=== PATIENT | male | born 1985 | race Caucasian/White ===

== ENCOUNTER → 2019-11-04 | Outpatient (CLI) | payer MEDICARE, MEDICAID, SELFPAY | PROVIDERS: Family Provider Internal Medicine; Visit Provider Nurse Practitioner | DX: F20.89 Other schizophrenia (principal); F17.210 Nicotine dependence, cigarettes, uncomplicated; G47.33 Obstructive sleep apnea (adult) (pediatric) ==

== ENCOUNTER → 2020-01-24 08:08 | Outpatient (BNVA) | payer MEDICARE, MEDICAID, SELFPAY | PROVIDERS: Family Provider Internal Medicine; PCP Internal Medicine; Visit Provider Nurse Practitioner Psychiatric/Mental Health | DX: Z79.899 Other long term (current) drug therapy (principal); F20.89 Other schizophrenia; F17.210 Nicotine dependence, cigarettes, uncomplicated | CPT/HCPCS: 80053; 80061; 83036; 85025; 99213 ==

== ENCOUNTER 2020-03-23 07:30 | Outpatient (CLI) | payer MEDICARE, MEDICAID, SELFPAY ==
--- NOTE | 2020-03-23 07:35 | US_ITS ---
WS: [id number] ABDOMINAL ULTRASOUND LIMITED REASON FOR VISIT: RIGHT UPPER QUANTRANT PAIN TECHNIQUE: Grayscale and Doppler ultrasound examination of the abdomen. FINDINGS: Pancreas: Within normal limits. Abdominal aorta and IVC: Within normal limits. Liver: Liver measures 27.2 cm in length. Diffuse fatty infiltration is noted. Normal hepatopedal circ ulation. Gallbladder: Gallbladder wall thickness measures 0.3 mm. Biliary sludge is present. No definite stone s. Right kidney: Right kidney measures 12.2 cm x 6.9 cm x 4.9 cm. No hydronephrosis no stones. US/US abdomen limited [id number] IMPRESSION: Hepatomegaly Fatty infiltration of the liver Biliary sludge.
== END 2020-03-23 07:31 | disposition home or self-care (01) ==
LOC: RAD 07:33
PROVIDERS: PCP Internal Medicine; Visit Provider Internal Medicine
DX: R10.11 Right upper quadrant pain (principal); K76.0 Fatty (change of) liver, not elsewhere classified; R16.0 Hepatomegaly, not elsewhere classified
CPT/HCPCS: 76705

== ENCOUNTER → 2020-04-17 07:35 | Outpatient (BNVA) | payer MEDICARE, MEDICAID, SELFPAY | PROVIDERS: PCP Internal Medicine; Visit Provider Nurse Practitioner Psychiatric/Mental Health | DX: F20.89 Other schizophrenia (principal); F17.210 Nicotine dependence, cigarettes, uncomplicated | CPT/HCPCS: 99213 ==

== ENCOUNTER → 2020-07-10 07:27 | Outpatient (BNVA) | payer MEDICARE, MEDICAID, SELFPAY | PROVIDERS: PCP Internal Medicine; Visit Provider Nurse Practitioner Psychiatric/Mental Health | DX: F20.89 Other schizophrenia (principal); F17.210 Nicotine dependence, cigarettes, uncomplicated | CPT/HCPCS: 96372; 99213 ==

== ENCOUNTER 2020-08-28 14:09 | Outpatient (CLI) | payer MEDICARE, MEDICAID, SELFPAY ==
--- NOTE | 2020-08-28 14:28 | MR_ITS ---
WS: [id number] MRI HEAD WITHOUT CONTRAST TECHNIQUE: Sagittal T1, T2 axial, T2 axial FLAIR, axial and coronal T1 images, axial susceptibility w eighted imaging, axial diffusion weighted images, and coronal T2 images were obtained. CLINICAL INFORMATION: MIGRAINE, VASCULAR HEADACHE COMPARISON: None. FINDINGS: No evidence of restricted diffusion to suggest acute ischemia. Ventricular system and basal cisterns are patent. No suspicious intracranial signal abnormalities. Normal posterior fossa. Normal vascular flow voids at the skull base. No extra-axial fluid collections. No evidence of mass or mass effect. S mall retention cyst in the posterior ethmoid air cells and right maxillary sinus. Small amount of flu id right frontal sinus. Mastoid air cells are well aerated. No hemosiderin on susceptibly weighted images. Tornwaldt or retention cyst in the posterior nasophary nx. This measures approximately 12 x 10 mm. Normal optic chiasm and pituitary infundibulum. Temporal lobes and hippocampal formations are normal in appearance. Normal cavernous sinuses and Meckel's cave . MR/MR head wo con* [id number] IMPRESSION: 1. No evidence of restricted diffusion to suggest acute ischemia. 2. No suspicious intracranial signal abnormalities. No hydrocephalus. 3. Retention cyst right maxillary sinus measuring 1.8 x 1.7 CM. Small retentio n cyst right posterior ethmoid air cells measuring 9 mm. Small amount of fluid in the right frontal sinus. 4. Prominent Tornwaldt cyst or polypoid retention cyst in the posterior nasoph arynx measuring 12 x 10 mm. 5. No hemosiderin on susceptibly weighted images. 6. No other significant findings.
== END 2020-08-28 14:10 | disposition home or self-care (01) ==
PROVIDERS: PCP Internal Medicine; Visit Provider Internal Medicine
DX: G43.909 Migraine, unspecified, not intractable, without status migrainosus (principal); G44.1 Vascular headache, not elsewhere classified; M27.40 Unspecified cyst of jaw
CPT/HCPCS: 70551

== ENCOUNTER 2020-09-16 18:41 | Emergency (ER) | payer MEDICARE, MEDICAID, SELFPAY ==
[2020-09-16 18:56] VITALS: BP 148/89; PULSE 89; RESP 14; TEMP 36.7; O2SAT 97; BMI 50.2
[2020-09-16 19:21] VITALS: BP 148/91; PULSE 88; RESP 20; O2SAT 98
--- NOTE | 2020-09-16 19:25 | XRR_ITS ---
PROCEDURE INFORMATION: Exam: XR Chest, 1 View Exam date and time: 09/16/2020 7:52 PM Age: 35 years old Clinical indication: Type not specified; Patient HX: Substernal chest pain resolved; Additional info: Cp TECHNIQUE: Imaging protocol: XR of the chest Views: 1 view. COMPARISON: No relevant prior studies available. FINDINGS: Lungs: Unremarkable. No consolidation. Pleural space: Unremarkable. No pleural effusion. No pneumothorax. Heart/Mediastinum: Unremarkable. No cardiomegaly. Bones/joints: Unremarkable. XR/XR chest 1V portable [id number] IMPRESSION: No acute findings.
--- NOTE | 2020-09-16 19:25 | ECG_ITS ---
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
[2020-09-16 19:30] LABS: Basophils % 0.4 %; Eosinophils # 0.3 10^3/uL (0.0-0.8); Eosinophils % 2.6 %; Hematocrit 42.6 % (42.0-52.0); Hemoglobin 14.2 g/dL (11.7-16.6); Lymphocytes # 1.9 10^3/uL (0.8-4.8); Mean Corpuscular HGB Conc 33.3 g/dL (30.0-36.0); Mean Corpuscular Hemoglobin 29.6 pg (28.0-34.0); Mean Corpuscular Volume 88.9 fL (80-94); Mean Platelet Volume 9.3 fL (7.4-10.4); Monocytes # 0.4 10^3/uL (0.2-0.9); Monocytes % 4.3 %; Neutrophils # 7.27 10^3/uL (1.8-7.7); Neutrophils % 73.3 %; Nucleated Red Blood Cells % 0 %; Platelet Count 275 10^3/cmm (130-400); Red Blood Count 4.79 10^6/uL (4.1-5.3); Red Cell Distribution Width 11.8 % (12.1-15.1); White Blood Count 9.9 10^3/uL (4.0-10.0)
[2020-09-16 19:51] LABS: Troponin(5th) Baseline 6 ng/L (0-15)
[2020-09-16 20:01] LABS: Alanine Aminotransferase 19 U/L (0-41); Albumin Level 4.2 g/dL (3.5-5.2); Alkaline Phosphatase 99 IU/L (40-130); Anion Gap 14.2 (5-19); Aspartate Amino Transferase 10 U/L (0-40); Blood Urea Nitrogen 13 mg/dL (6-20); Calcium 9.1 mg/dL (8.5-10.5); Carbon Dioxide 27 mmol/L (22-29); Chloride 103 mmol/L (98-107); Creatine Phosphokinase 60 U/L (39-308); Globulin 1.9 g/dL (1.3-4.6); Glucose 108 mg/dL (65-115); NT Pro B Type Natriuretic Pept 129 pg/mL (0-125); Osmolality Calculated 291 mOsm/kg (285-295); Potassium 4.2 mmol/L (3.5-5.1); Sodium 140 mmol/L (136-145); Total Bilirubin 0.2 mg/dL (0.15-1.2); Total Protein 6.1 g/dL (6.6-8.7)
--- NOTE | 2020-09-16 20:07 | W.ED.CHESTPA ---
HPI - Chest Pain General: Chief Complaint: Chest Pain Stated Complaint: CP Time Seen by Provider: 09/16/20 19:08 History of Present Illness: HPI narrative: 35-year-old male with a history of hypertension. He presents with a second of chest pain that was quite intense while on his computer at home this evening. It is gone now. He was short of breath with the pain, but is not short of breath now. No diaphoresis, nausea, or vomiting. He has been monitoring his blood pressure closely for the past couple of weeks as it has been elevated at times. He recently had an MRI for a near syncopal episode as an outpatient. MD complaint: chest pain Pertinent past history: other (HTN) Onset (ago): hour(s) Timing of current episode: episodic and now resolved Prior episodes: Yes Onset: during rest Pain location: substernal Pain radiation: none Severity: severe Relieving factors: nothing Exacerbating factors: nothing Associated symptoms: Reports dyspnea; Deny fever(s), leg edema, nausea, syncope or vomiting Review of Systems Const: Denies: fever(s) Eyes: Denies: change in vision ENMT: Denies: odynophagia or sinus pain Card: Denies: syncope Resp: Reports: dyspnea GI: Denies: nausea or vomiting : Denies: difficulty urinating or hematuria Musc: Reports: neck pain; Denies: back pain or joint warmth Skin/Breast: Denies: rash or erythema Neuro: Denies: headache(s), dizziness or vertigo Psych: Denies: anxiety PFSH ED PFSH: Medical History (Updated 09/16/20 @ 20:20 by Bryan Perdue DO) Diabetes HTN (hypertension) Hyperlipidemia Nicotine dependence, cigarettes, uncomplicated Obesities, morbid Obstructive sleep apnea Other schizophrenia Surgical History History of adenoidectomy History of colonoscopy History of esophagogastroduodenoscopy (EGD) Family History Denies family history of Anesthesia complication Bleeding disorder Social History Smoking and tobacco status: current every day smoker cigarettes Packs smoked per day: 1.5 Years cigarettes smoked: 16 Quit status (tobacco): considering quitting Second hand smoke exposure: No Physical Exam Const: GENERAL APPEARANCE: well developed ORIENTATION/CONSCIOUSNESS: Yes oriented to person, Yes oriented to place and Yes oriented to time HENMT: COMMON NORMALS: normocephalic, external ears normal and Normal external nose present HEAD & SCALP: normocephalic FACE & SINUS: normal facial exam NOSE: Normal external nose present and No nasal discharge present EXTERNAL EAR: Yes external ears normal THROAT: posterior oropharynx normal; no peritonsillar mass Eye: COMMON NORMALS: Equal, round and reactive pupils present, EOMs intact bilaterally and conjunctivae normal EYELID: eyelids normal CONJUNCTIVA: Yes conjunctivae normal PUPIL: Yes Equal, round and reactive pupils present Neck/C-Spine: GENERAL: No tracheal deviation Chest: COMMONS NORMALS: normal inspection of the chest CHEST: No tenderness Resp: COMMON NORMALS: clear to auscultation bilaterally EFFORT & INSPECTION: No tachypneic, No respiratory distress, No retractions, No uses accessory muscles and No tracheal deviation AUSCULTATION: clear to auscultation bilaterally, no rhonchi, no wheezes and lung sounds not diminished Cardio: COMMON NORMALS: regular rate and regular rhythm RATE: regular rate RHYTHM: regular rhythm HEART SOUNDS: no murmurs PERIPHERAL PULSES: radial pulses present GI: INSPECTION: No abdominal distension AUSCULTATION: No Hyperactive bowel sounds present and No Hypoactive bowel sounds present PALPATION: No Guarding due to palpation present (GI) and No Rigid due to palpation PERCUSSION: no dullness to percussion and no tympanic to percussion Neuro: SENSORIUM/ORIENTATION: Yes oriented to person, Yes oriented to place and Yes oriented to time Psych: COMMON NORMALS: mental status grossly normal Skin: COMMON NORMALS: no rashes or lesions noted GENERAL SKIN EXAM: no rashes or lesions noted Course Vital Signs: Vital signs: Vital Signs Temperature 98.0 F 09/16/20 18:56 Pulse Rate 92 09/16/20 20:26 Respiratory Rate 18 09/16/20 20:26 Blood Pressure 160/91 09/16/20 20:26 Pulse Oximetry 98 09/16/20 20:26 MDM - Chest Pain MDM Narrative: Medical decision making narrative: 35-year-old male with an instant of chest pain while at rest at home. His blood pressure was elevated. It has come back down now he is in the 150s over 80s. His pain is resolved. No fever. No cough. His chest x-ray is negative. His EKG is normal with a normal sinus rhythm and normal axis. His white blood cell count is 9.9. Hemoglobin 14. His troponin is 6. He will be allowed home for outpatient follow-up. Lab Data: Labs: Lab Results 09/16/20 09/16/20 09/16/20 Range/Units 19:15 19:15 19:15 WBC 9.9 (4.0-10.0) 10^3/ uL RBC 4.79 (4.1-5.3) 10^6/u L Hgb 14.2 (11.7-16.6) g/dL Hct 42.6 (42.0-52.0) % MCV 88.9 (80-94) fL MCH 29.6 (28.0-34.0) pg MCHC 33.3 (30.0-36.0) g/dL RDW 11.8 L (12.1-15.1) % Plt Count 275 (130-400) 10^3/c mm MPV 9.3 (7.4-10.4) fL Neut % (Auto) 73.3 % Lymph % (Auto) 19.0 % [place] % (Auto) 4.3 % Eos % (Auto) 2.6 % Baso % (Auto) 0.4 % Neut # (Auto) 7.27 (1.8-7.7) 10^3/u L Lymph # (Auto) 1.9 (0.8-4.8) 10^3/u L [place] # (Auto) 0.4 (0.2-0.9) 10^3/u L Eos # (Auto) 0.3 (0.0-0.8) 10^3/u L Baso # (Auto) 0.0 (0.0-0.1) 10^3/u L Nucleated RBC % (a uto) 0 % Nucleated RBCs # 0.0 /100WBC Sodium 140 (136-145) mmol/L Potassium 4.2 (3.5-5.1) mmol/L Chloride 103 (98-107) mmol/L Carbon Dioxide 27 (22-29) mmol/L Anion Gap 14.2 (5-19) BUN 13 (6-20) mg/dL Creatinine 0.8 (0.7-1.2) mg/dL GFR Calculation 110.0 (90-130) mL/min Glucose 108 (65-115) mg/dL Calculated Osmolal ity 291 (285-295) mOsm/k g Calcium 9.1 (8.5-10.5) mg/dL Total Bilirubin 0.2 (0.15-1.2) mg/dL AST 10 (0-40) U/L ALT 19 (0-41) U/L Alkaline Phosphata se 99 (40-130) IU/L Creatine Kinase 60 (39-308) U/L Troponin T Baselin e 6 (0-15) ng/L NT-Pro-B Natriuret Pep 129 H (0-125) pg/mL Total Protein 6.1 L (6.6-8.7) g/dL Albumin 4.2 (3.5-5.2) g/dL Globulin 1.9 (1.3-4.6) g/dL Discharge Plan Discharge Patient Disposition: Home Clinical Impression: Chest pain Qualifiers: Chest pain type: unspecified Qualified Code(s): R07.9 - Chest pain, unspecified Condition: Stable Prescriptions: No Action lisinopril-hydrochlorothiazide 20-12.5 mg tablet 1 tab PO DAILY RF: 0 cholecalciferol (vitamin D3) 1,250 mcg (50,000 unit) capsule 1,250 mcg PO .weekly RF: 0 Invega Trinza 546 mg/1.75 mL syringe 546 mg IM .[id number] Qty: 1.75 RF: 6 Discharge Orders: Discharge Order (Routine); Ordered 09/16/20 Ordered By: Bryan Perdue Referrals: Kacey Adam MD [Primary Care Provider] - 4-7 days Discharge Diet: Usual diet Discharge Activity: Increase activity as tolerated Patient Instructions: Chest Pain (ED) Activity Restrictions/Additional Instructions: Continue to monitor your blood pressure twice daily as directed by your physician. Return for any repeated episodes of chest pain, shortness of breath, fever, cough, repeated episodes of syncope or passing out, other concerning symptoms. Discharge Date/Time: 09/16/20 20:27 Coding Level of Care Code ED Furniture Stainer for Chg Fwd Exam Comprehensive
[2020-09-16 20:13] VITALS: BP 160/91; PULSE 91; RESP 18; O2SAT 97
[2020-09-16 20:26] VITALS: BP 160/91; PULSE 92; RESP 18; O2SAT 98
== END 2020-09-16 20:27 | disposition home or self-care (01) ==
PROVIDERS: Emergency Provider Emergency Medicine; PCP Internal Medicine
DX: R07.9 Chest pain, unspecified (principal); E11.9 Type 2 diabetes mellitus without complications; I10 Essential (primary) hypertension; E78.5 Hyperlipidemia, unspecified; F17.210 Nicotine dependence, cigarettes, uncomplicated
CPT/HCPCS: 12345; 71045; 80053; 82550; 83880; 84484; 85025; 93005; 99282; 99283

== ENCOUNTER → 2020-10-02 08:03 | Outpatient (BNVA) | payer MEDICARE, MEDICAID, SELFPAY | PROVIDERS: PCP Internal Medicine; Visit Provider Nurse Practitioner Psychiatric/Mental Health | DX: F20.89 Other schizophrenia (principal); F17.210 Nicotine dependence, cigarettes, uncomplicated | CPT/HCPCS: 96372; 99213 ==

== ENCOUNTER → 2021-01-04 10:59 | Outpatient (BNVA) | payer MEDICARE, MEDICAID, SELFPAY | PROVIDERS: PCP Internal Medicine; Visit Provider Nurse Practitioner Psychiatric/Mental Health | DX: F20.89 Other schizophrenia (principal); F17.210 Nicotine dependence, cigarettes, uncomplicated | CPT/HCPCS: 96372; 99214 ==

== ENCOUNTER → 2021-04-01 08:55 | Outpatient (BNVA) | payer MEDICARE, MEDICAID, SELFPAY | PROVIDERS: PCP Internal Medicine; Visit Provider Nurse Practitioner Psychiatric/Mental Health | DX: F20.89 Other schizophrenia (principal); Z79.899 Other long term (current) drug therapy; F17.210 Nicotine dependence, cigarettes, uncomplicated | CPT/HCPCS: 96372; 99214 ==

== ENCOUNTER → 2021-07-01 08:33 | Outpatient (BNVA) | payer MEDICARE, MEDICAID, SELFPAY | PROVIDERS: PCP Internal Medicine; Visit Provider Nurse Practitioner Psychiatric/Mental Health | DX: F20.89 Other schizophrenia (principal); F17.210 Nicotine dependence, cigarettes, uncomplicated | CPT/HCPCS: 96372; 99214 ==

== ENCOUNTER → 2021-09-26 08:38 | Outpatient (BNVA) | payer MEDICARE, MEDICAID, SELFPAY | PROVIDERS: PCP Internal Medicine; Visit Provider Nurse Practitioner Psychiatric/Mental Health | DX: F20.89 Other schizophrenia (principal); F17.210 Nicotine dependence, cigarettes, uncomplicated | CPT/HCPCS: 96372; 99214 ==

== ENCOUNTER 2021-09-26 09:39 | Outpatient (CLI) | payer MEDICARE, MEDICAID, SELFPAY ==
[2021-09-26 10:15] LABS: Basophils # 0.1 10^3/uL (0.0-0.1); Basophils % 0.5 %; Eosinophils # 0.3 10^3/uL (0.0-0.8); Hematocrit 45.1 % (42.0-52.0); Hemoglobin 15.6 g/dL (11.7-16.6); Lymphocytes # 2.9 10^3/uL (0.8-4.8); Lymphocytes % 26.5 %; Mean Corpuscular HGB Conc 34.6 g/dL (30.0-36.0); Mean Corpuscular Hemoglobin 29.9 pg (28.0-34.0); Mean Corpuscular Volume 86.6 fl (80-94); Mean Platelet Volume 9.5 fL (7.4-10.4); Monocytes # 0.6 10^3/uL (0.2-0.9); Monocytes % 5.8 %; Neutrophils # 6.92 10^3/uL (1.8-7.7); Neutrophils % 63.5 %; Nucleated Red Blood Cells % 0 %; Platelet Count 298 10^3/cmm (130-400); Red Blood Count 5.21 10^6/uL (4.1-5.3); Red Cell Distribution Width 12.4 % (12.1-15.1); White Blood Count 10.9 10^3/uL (4.0-10.0)
[2021-09-26 10:21] LABS: Estmated Average Glucose 177; Hemoglobin A1C 7.8 % (4.0-6.0)
[2021-09-26 10:33] LABS: Alanine Aminotransferase 33 U/L (0-41); Albumin Level 4.1 g/dL (3.5-5.2); Alkaline Phosphatase 92 IU/L (40-130); Anion Gap 15.9 (5-19); Aspartate Amino Transferase 22 U/L (0-40); Blood Urea Nitrogen 11 mg/dL (6-20); Calcium 9.6 mg/dL (8.5-10.5); Carbon Dioxide 25 mmol/L (22-29); Chloride 99 mmol/L (98-107); Globulin 2.7 g/dL (1.3-4.6); Glomerular Filtration Rate 109.4 mL/min (90-130); Glucose 157 mg/dL (65-115); Osmolality Calculated 285 mOsm/kg (285-295); Potassium 3.9 mmol/L (3.5-5.1); Sodium 136 mmol/L (136-145); Total Bilirubin 0.4 mg/dL (0.15-1.2); Total Protein 6.8 g/dL (6.6-8.7)
[2021-09-26 17:42] LABS: Cholesterol 232 mg/dL (0-200); HDL Cholesterol 40 mg/dL (60-100); LDL Cholesterol Calculated 130 mg/dL (50-129); LDL HDL Ratio 3.25 RATIO (0.00-3.22); Triglycerides 310 mg/dL (0-150)
== END 2021-09-26 09:40 | disposition home or self-care (01) ==
PROVIDERS: PCP Internal Medicine; Visit Provider Nurse Practitioner Psychiatric/Mental Health
DX: Z79.899 Other long term (current) drug therapy (principal)
CPT/HCPCS: 36415; 80053; 80061; 83036; 85025

== ENCOUNTER → 2021-12-24 08:47 | Outpatient (BNVA) | payer MEDICARE, MEDICAID, SELFPAY | PROVIDERS: PCP Internal Medicine; Visit Provider Nurse Practitioner Psychiatric/Mental Health | DX: F17.210 Nicotine dependence, cigarettes, uncomplicated (principal); F20.89 Other schizophrenia | CPT/HCPCS: 96372; 99214 ==

== ENCOUNTER → 2022-03-20 08:29 | Outpatient (BNVA) | payer MEDICARE, MEDICAID, SELFPAY | PROVIDERS: PCP Internal Medicine; Visit Provider Nurse Practitioner Psychiatric/Mental Health | DX: F17.210 Nicotine dependence, cigarettes, uncomplicated (principal); F20.89 Other schizophrenia | CPT/HCPCS: 96372; 99214 ==

== ENCOUNTER 2022-09-30 15:50 | Emergency (ER) | payer MEDICARE, MEDICAID, SELFPAY ==
[2022-09-30 15:57] VITALS: BP 154/96; PULSE 106; RESP 16; TEMP 36.4; O2SAT 96
--- NOTE | 2022-09-30 16:03 | ECG_ITS ---
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
[2022-09-30 16:33] VITALS: BP 156/101
--- NOTE | 2022-09-30 16:50 | PC.NURSE ---
pt reports pain to his back and then needle pricks in his left hand, and headache which have all resolved. Reports current nausea and slight dyspnea. denies chest pain or vomiting. pt reports he sees a wellness educator with [facility], states he sees her for back pain. Pt sitting up in bed, respirations even and unlabored, lung sounds clear. visitors at bedside. call light within reach.
[2022-09-30 17:00] VITALS: BP 154/102; PULSE 121; O2SAT 94
--- NOTE | 2022-09-30 17:12 | W.ED.GENADLT ---
HPI - General Adult General: Chief complaint: General Medical Stated complaint: rapid hr, n/v/headache Time Seen by Provider: 09/30/22 16:40 Source: patient Mode of arrival: ambulatory History of Present Illness: 37-year-old male presents to the emergency room with complaints of pain in his back. Patient had back pain intermittently for the last approximately week. Couple x3 days ago he had a few seconds of intermittent chest pain. Said a rapid heart rate he has a history of diabetes mellitus he does smoke is history hypertension hyperlipidemia as well he has no known history of coronary artery disease. He has not previously had any cardiac screening or evaluation. He had seen a computer network engineer he had associated back pain with possible cardiac pain but when he was evaluated it was not thought to be associated with any cardiac issues. Has not noticed anything that exacerbates or relieves the pain he has not had any associated diaphoresis or dyspnea. Onset (ago): day(s) (-) Location: back Radiation: non-radiation Severity: mild Quality: sharp Pain Consistency: intermittent Relieving factors: none Exacerbating factors: none Associated symptoms: Reports chest pain; Deny confusion, cough, diaphoresis, decreased appetite, dyspnea, fevers/chills, headache(s), malaise, nausea, rash, palpitations, seizures, short of breath, syncope, vomiting or weakness Treatments prior to arrival: none Review of Systems Const: Denies: fever(s), chills, fatigue, malaise or diaphoresis ENMT: Denies: throat pain, ear or mastoid pain, nasal discharge or nasal congestion Card: Reports: chest pain; Denies: palpitations or syncope Resp: Denies: dyspnea, productive cough, non-productive cough or wheezing GI: Denies: nausea or vomiting : Denies: flank pain, dysuria, urinary frequency or urinary urgency Musc: Reports: back pain Skin/Breast: Denies: rash Neuro: Denies: headache(s) or confusion PFSH ED PFSH: Medical History Diabetes HTN (hypertension) Hyperlipidemia Nicotine dependence, cigarettes, uncomplicated Obesities, morbid Obstructive sleep apnea Other schizophrenia Psychiatric care Surgical History History of adenoidectomy History of colonoscopy History of esophagogastroduodenoscopy (EGD) Family History Denies family history of Anesthesia complication Bleeding disorder Social History Smoking and tobacco status: current every day smoker cigarettes Years cigarettes smoked: 16 Quit status (tobacco): considering quitting Second hand smoke exposure: No Physical Exam Const: COMMON NORMALS: no acute distress GENERAL APPEARANCE: cooperative and comfortable ORIENTATION/CONSCIOUSNESS: Yes awake, Yes oriented to person, Yes oriented to place and Yes oriented to time HENMT: COMMON NORMALS: normocephalic, atraumatic and hearing grossly normal bilaterally HEAD & SCALP: normocephalic and atraumatic Resp: COMMON NORMALS: normal respiratory effort, No retractions, No use of accessory muscles and clear to auscultation bilaterally AUSCULTATION: clear to auscultation bilaterally Cardio: COMMON NORMALS: regular rate, regular rhythm and No murmurs present (Cardio) RATE: regular rate RHYTHM: regular rhythm GI: COMMON NORMALS: Soft to palpation and No hepatosplenomegaly present AUSCULTATION: Yes normoactive bowel sounds PALPATION: Yes Soft to palpation, No Tenderness to palpation present (GI), No Guarding due to palpation present (GI) and Yes No hepatosplenomegaly present Extremity: COMMON NORMALS: normal to inspection, capillary refill normal, no clubbing, cyanosis or edema, no calf tenderness and no pedal edema Neuro: SENSORIUM/ORIENTATION: Yes oriented to person, Yes oriented to place and Yes oriented to time Skin: COMMON NORMALS: no rashes or lesions noted GENERAL SKIN EXAM: no rashes or lesions noted Course Vital Signs: Vital signs: Vital Signs Temperature 97.6 F 09/30/22 15:57 Pulse Rate 106 H 09/30/22 18:34 Respiratory Rate 16 09/30/22 15:57 Blood Pressure 154/86 09/30/22 18:34 Pulse Oximetry 94 09/30/22 18:34 Oxygen Delivery Me thod 09/30/22 18:03 MDM - General Adult Medical Decision Making Labs and EKG unremarkable troponin negative. Patient has had the symptoms for over a week troponin EKG is unchanged. Vital signs are stable. Reviewed findings with the patient and they most of his pain is musculoskeletal is reproducible with palpation across his back we will discharge patient home follow-up as needed. Medical Records I reviewed the patient's medical records. Lab Data I reviewed the patient's lab results. 09/30/22 17:17 09/30/22 17:17 Radiology Impressions Chest X-Ray 09/30/22 17:48 IMPRESSION: No acute findings. Laboratory Results WBC 12.6 10^3/uL (4.0-10.0) H 09/30/22 17:17 RBC 5.20 10^6/uL (4.1-5.3) 09/30/22 17:17 Hgb 15.7 g/dL (11.7-16.6) 09/30/22 17:17 Hct 44.5 % (42.0-52.0) 09/30/22 17:17 MCV 85.6 fl (80-94) 09/30/22 17:17 MCH 30.2 pg (28.0-34.0) 09/30/22 17:17 MCHC 35.3 g/dL (30.0-36.0) 09/30/22 17:17 RDW 11.9 % (12.1-15.1) L 09/30/22 17:17 Plt Count 283 10^3/cmm (130-400) 09/30/22 17:17 MPV 9.3 fL (7.4-10.4) 09/30/22 17:17 Neut % (Auto) 77.2 % 09/30/22 17:17 Lymph % (Auto) 15.3 % 09/30/22 17:17 [place] % (Auto) 4.7 % 09/30/22 17:17 Eos % (Auto) 1.9 % 09/30/22 17:17 Baso % (Auto) 0.4 % 09/30/22 17:17 Neut # (Auto) 9.75 10^3/uL (1.8-7.7) H 09/30/22 17:17 Lymph # (Auto) 1.9 10^3/uL (0.8-4.8) 09/30/22 17:17 [place] # (Auto) 0.6 10^3/uL (0.2-0.9) 09/30/22 17:17 Eos # (Auto) 0.2 10^3/uL (0.0-0.8) 09/30/22 17:17 Baso # (Auto) 0.1 10^3/uL (0.0-0.1) 09/30/22 17:17 Nucleated RBC % (auto) 0 % 09/30/22 17:17 Nucleated RBCs # 0.0 /100WBC 09/30/22 17:17 Sodium 137 mmol/L (136-145) 09/30/22 17:17 Potassium 3.6 mmol/L (3.5-5.1) 09/30/22 17:17 Chloride 98 mmol/L (98-107) 09/30/22 17:17 Carbon Dioxide 24 mmol/L (22-29) 09/30/22 17:17 Anion Gap 18.6 (5-19) 09/30/22 17:17 BUN 15 mg/dL (6-20) 09/30/22 17:17 Creatinine 0.7 mg/dL (0.7-1.2) 09/30/22 17:17 GFR Calculation 126.9 mL/min (90-130) 09/30/22 17:17 Glucose 234 mg/dL (65-115) H 09/30/22 17:17 Calculated Osmolality 292 mOsm/kg (285-295) 09/30/22 17:17 Calcium 9.4 mg/dL (8.5-10.5) 09/30/22 17:17 Total Bilirubin 0.3 mg/dL (0.15-1.2) 09/30/22 17:17 AST 13 U/L (0-40) 09/30/22 17:17 ALT 19 U/L (0-41) 09/30/22 17:17 Alkaline Phosphatase 108 U/L (40-130) 09/30/22 17:17 Troponin T Baseline 6 ng/L (0-15) 09/30/22 17:17 Total Protein 6.6 g/dL (6.6-8.7) 09/30/22 17:17 Albumin 4.2 g/dL (3.5-5.2) 09/30/22 17:17 Globulin 2.4 g/dL (1.3-4.6) 09/30/22 17:17 Discharge Plan Discharge Patient Disposition: Home Clinical Impression: Acute upper back pain Condition: Stable Prescriptions: New diclofenac sodium 75 mg tablet,delayed release (DR/EC) 75 mg PO Q12H PRN (Reason: pain) Qty: 20 0RF No Action cholecalciferol (vitamin D3) 1,250 mcg (50,000 unit) capsule 1,250 mcg PO .weekly Rx Instructions: ON lisinopril-hydrochlorothiazide 20-25 mg tablet 1 tab PO DAILY metformin 500 mg tablet 500 mg PO BID Invega Trinza 546 mg/1.75 mL syringe 546 mg IM .[id number] Qty: 1.75 6RF Rx Instructions: Injection every three months atorvastatin 20 mg tablet 20 mg PO DAILY Discharge Orders: Discharge ED (Routine); Ordered 09/30/22 Ordered By: Errol Howell Referrals: Kacey Adam MD [Primary Care Provider] - Discharge Diet: Usual diet Discharge Activity: Resume usual activity Patient Instructions: Opioid Safety, Pain Management Coding Level of Care Code ED Chief Building Inspector for Chg Fwd Exam Detailed
[2022-09-30] MEDS: sodium chloride 0.9% 1,000 ML 999 ML IV (17:14)
[2022-09-30 17:30] LABS: Basophils # 0.1 10^3/uL (0.0-0.1); Basophils % 0.4 %; Eosinophils # 0.2 10^3/uL (0.0-0.8); Eosinophils % 1.9 %; Hematocrit 44.5 % (42.0-52.0); Hemoglobin 15.7 g/dL (11.7-16.6); Lymphocytes # 1.9 10^3/uL (0.8-4.8); Lymphocytes % 15.3 %; Mean Corpuscular HGB Conc 35.3 g/dL (30.0-36.0); Mean Corpuscular Hemoglobin 30.2 pg (28.0-34.0); Mean Corpuscular Volume 85.6 fl (80-94); Mean Platelet Volume 9.3 fL (7.4-10.4); Monocytes # 0.6 10^3/uL (0.2-0.9); Monocytes % 4.7 %; Neutrophils # 9.75 10^3/uL (1.8-7.7); Neutrophils % 77.2 %; Nucleated Red Blood Cells % 0 %; Platelet Count 283 10^3/cmm (130-400); Red Cell Distribution Width 11.9 % (12.1-15.1); White Blood Count 12.6 10^3/uL (4.0-10.0)
[2022-09-30 17:46] LABS: Alanine Aminotransferase 19 U/L (0-41); Albumin Level 4.2 g/dL (3.5-5.2); Alkaline Phosphatase 108 U/L (40-130); Anion Gap 18.6 (5-19); Aspartate Amino Transferase 13 U/L (0-40); Blood Urea Nitrogen 15 mg/dL (6-20); Calcium 9.4 mg/dL (8.5-10.5); Carbon Dioxide 24 mmol/L (22-29); Chloride 98 mmol/L (98-107); Globulin 2.4 g/dL (1.3-4.6); Glomerular Filtration Rate 126.9 mL/min (90-130); Glucose 234 mg/dL (65-115); Osmolality Calculated 292 mOsm/kg (285-295); Potassium 3.6 mmol/L (3.5-5.1); Sodium 137 mmol/L (136-145); Total Bilirubin 0.3 mg/dL (0.15-1.2); Total Protein 6.6 g/dL (6.6-8.7)
--- NOTE | 2022-09-30 17:48 | XRR_ITS ---
PROCEDURE INFORMATION: Exam: XR Chest Exam date and time: 09/30/2022 7:01 PM Age: 37 years old Clinical indication: Cough and dyspnea; Additional info: Dyspnea/cough TECHNIQUE: Imaging protocol: Radiologic exam of the chest. Views: 1 view. COMPARISON: CR XR chest 1V portable [id number] 09/16/2020 7:42 PM FINDINGS: Lungs: Unremarkable. No consolidation. Pleural spaces: Unremarkable. No pleural effusion. No pneumothorax. Heart/Mediastinum: Unremarkable. No cardiomegaly. Bones/joints: Unremarkable. XR/XR chest 1V portable [id number] IMPRESSION: No acute findings.
[2022-09-30 17:49] LABS: Troponin(5th) Baseline 6 ng/L (0-15)
[2022-09-30 18:03] VITALS: BP 154/86; PULSE 110; O2SAT 91
[2022-09-30 18:34] VITALS: BP 154/86; PULSE 106; O2SAT 94
== END 2022-09-30 18:57 | disposition home or self-care (01) ==
PROVIDERS: Emergency Provider Family Medicine; PCP Internal Medicine
DX: M54.6 Pain in thoracic spine (principal); Z79.84 Long term (current) use of oral hypoglycemic drugs; E11.9 Type 2 diabetes mellitus without complications; I10 Essential (primary) hypertension; E78.5 Hyperlipidemia, unspecified; F17.210 Nicotine dependence, cigarettes, uncomplicated
CPT/HCPCS: 71045; 80053; 84484; 85025; 93005; 96360; 99285; J7030

== ENCOUNTER → 2023-02-19 09:52 | Outpatient (BNVA) | payer MEDICARE, MEDICAID, SELFPAY | PROVIDERS: PCP Internal Medicine; Visit Provider Nurse Practitioner Psychiatric/Mental Health | DX: Z79.899 Other long term (current) drug therapy (principal) | CPT/HCPCS: 80061; 83036 ==

== ENCOUNTER 2023-07-18 07:59 | Emergency (ER) | payer MEDICARE, MEDICAID, SELFPAY ==
[2023-07-18 08:04] VITALS: BP 161/126; PULSE 99; RESP 15; TEMP 36.6; O2SAT 96; BMI 44.3
--- NOTE | 2023-07-18 08:11 | XRR_ITS ---
PROCEDURE INFORMATION: Exam: XR Abdomen Exam date and time: 07/18/2023 8:24 AM Age: 37 years old Clinical indication: Constipation; Additional info: Upright/constipation TECHNIQUE: Imaging protocol: Radiologic exam of the abdomen. Views: Frontal supine view of the abdomen. 1 View. COMPARISON: CR XR chest 1V portable [id number] 09/30/2022 7:01 PM FINDINGS: Limitations: Artifactually attenuated/obscured lower abdomen. Pelvis excluded from the field of view. Gastrointestinal tract: No air-filled dilated bowel loops or evidence of bowel thickening in the adequately assessed upper to mid abdomen. Intraperitoneal space: No supine evidence of free air. Bones/joints: Unremarkable. XR/XR abdomen 1V* [id number] IMPRESSION: Limited exam without acute findings.
--- NOTE | 2023-07-18 08:15 | W.ED.GENADLT ---
HPI - General Adult General: Chief complaint: General Medical Stated complaint: constipation Time Seen by Provider: 07/18/23 08:11 Source: patient Mode of arrival: ambulatory History of Present Illness: 37 yo male presents emergency room complaining of chronic constipation. He has small bowel movement about 3 hours before coming in. He takes fiber he is also on Invega. He denies any hematochezia or melena. Associated symptoms: Deny chest pain, dyspnea, malaise, nausea, rash, palpitations or vomiting Review of Systems Const: Denies: fever(s), chills, fatigue or malaise ENMT: Denies: throat pain, ear or mastoid pain, nasal discharge or nasal congestion Card: Denies: chest pain, palpitations, irregular heart rhythm or edema Resp: Denies: dyspnea, productive cough or non-productive cough GI: Denies: abdominal pain, nausea or vomiting : Denies: flank pain, dysuria, urinary frequency or urinary urgency Skin/Breast: Denies: rash or pruritus PFSH ED PFSH: Medical History Diabetes HTN (hypertension) Hyperlipidemia Nicotine dependence, cigarettes, uncomplicated Obesities, morbid Obstructive sleep apnea Other schizophrenia Psychiatric care Surgical History History of adenoidectomy History of colonoscopy History of esophagogastroduodenoscopy (EGD) Family History Denies family history of Anesthesia complication Bleeding disorder Social History Smoking and tobacco status: current every day smoker cigarettes Years cigarettes smoked: 16 Quit status (tobacco): considering quitting Second hand smoke exposure: No Physical Exam Const: COMMON NORMALS: no acute distress GENERAL APPEARANCE: cooperative and comfortable ORIENTATION/CONSCIOUSNESS: Yes awake, Yes oriented to person, Yes oriented to place and Yes oriented to time HENMT: COMMON NORMALS: normocephalic, atraumatic and hearing grossly normal bilaterally HEAD & SCALP: normocephalic and atraumatic Resp: COMMON NORMALS: normal respiratory effort, No retractions, No use of accessory muscles and clear to auscultation bilaterally AUSCULTATION: clear to auscultation bilaterally Cardio: COMMON NORMALS: regular rate, regular rhythm and No murmurs present (Cardio) RATE: regular rate RHYTHM: regular rhythm GI: COMMON NORMALS: Soft to palpation and No hepatosplenomegaly present AUSCULTATION: Yes normoactive bowel sounds PALPATION: Yes Soft to palpation, No Tenderness to palpation present (GI), No Guarding due to palpation present (GI) and Yes No hepatosplenomegaly present Extremity: COMMON NORMALS: normal to inspection, capillary refill normal, no clubbing, cyanosis or edema, no calf tenderness and no pedal edema Neuro: SENSORIUM/ORIENTATION: Yes oriented to person, Yes oriented to place and Yes oriented to time Skin: COMMON NORMALS: no rashes or lesions noted GENERAL SKIN EXAM: no rashes or lesions noted Course Vital Signs: Vital signs: Vital Signs Temperature 97.9 F 07/18/23 08:04 Pulse Rate 99 07/18/23 08:04 Respiratory Rate 15 07/18/23 08:04 Blood Pressure 161/126 07/18/23 08:04 Pulse Oximetry 96 07/18/23 08:04 Oxygen Delivery Me thod Room Air 07/18/23 08:04 MDM - General Adult Medical Decision Making No acute findings on exam KUB appears to show some retained stool however because of his body habitus is not very clear. His abdominal exam is benign he has good bowel sounds. We will discharge home lactulose. Follow-up with primary care if not improving. Medical Records I reviewed the patient's medical records. Lab Data I reviewed the patient's lab results. Discharge Plan Discharge Patient Disposition: Home Clinical Impression: Constipation Condition: Stable Prescriptions: New lactulose 20 gram/30 mL solution 30 g PO Q2H 1 Days Qty: 540 0RF Rx Instructions: until desired laxative effect No Action cholecalciferol (vitamin D3) 1,250 mcg (50,000 unit) capsule 1,250 mcg PO .weekly Rx Instructions: ON lisinopril-hydrochlorothiazide 20-25 mg tablet 1 tab PO DAILY metformin 500 mg tablet 500 mg PO BID Trulicity 0.75 mg/0.5 mL pen injector SUBCUT .weekly atorvastatin 20 mg tablet 20 mg PO DAILY Invega Trinza 546 mg/1.75 mL syringe 546 mg IM .[id number] Qty: 1.75 6RF Rx Instructions: Injection every three months Discharge Orders: Discharge ED (Routine); Ordered 07/18/23 Ordered By: Errol Howell Referrals: Kacey Adam MD [Primary Care Provider] - Discharge Diet: Clear Liquid Discharge Activity: Increase activity as tolerated Patient Instructions: Constipation (ED), Opioid Safety, Pain Management Coding Level of Care Code ED 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
== END 2023-07-18 08:40 | disposition home or self-care (01) ==
PROVIDERS: Emergency Provider Family Medicine; PCP Internal Medicine
DX: K59.00 Constipation, unspecified (principal); Z79.85 Long-term (current) use of injectable non-insulin antidiabetic drugs; Z79.84 Long term (current) use of oral hypoglycemic drugs; F17.210 Nicotine dependence, cigarettes, uncomplicated; E11.9 Type 2 diabetes mellitus without complications; I10 Essential (primary) hypertension; E78.5 Hyperlipidemia, unspecified
CPT/HCPCS: 74018; 99283

== ENCOUNTER → 2024-01-05 10:39 | Outpatient (BNVA) | payer MEDICARE, MEDICAID, SELFPAY | PROVIDERS: PCP Internal Medicine; Visit Provider Podiatrist Foot & Ankle Surgery | DX: E11.9 Type 2 diabetes mellitus without complications (principal); Z79.84 Long term (current) use of oral hypoglycemic drugs | CPT/HCPCS: 99203 ==

== ENCOUNTER → 2024-02-16 08:39 | Outpatient (BNVA) | payer MEDICARE, MEDICAID, OTHER, SELFPAY | PROVIDERS: PCP Internal Medicine; Visit Provider Nurse Practitioner Psychiatric/Mental Health | DX: Z79.899 Other long term (current) drug therapy (principal); F20.89 Other schizophrenia; F17.210 Nicotine dependence, cigarettes, uncomplicated | CPT/HCPCS: 80061; 83036 ==

== ENCOUNTER → 2024-08-02 13:48 | Outpatient (BNVA) | payer MEDICARE, MEDICAID, SELFPAY | PROVIDERS: PCP Internal Medicine; Visit Provider Nurse Practitioner Family | DX: L40.0 Psoriasis vulgaris (principal); F17.200 Nicotine dependence, unspecified, uncomplicated | CPT/HCPCS: 99204 ==

== ENCOUNTER → 2024-11-03 10:17 | Outpatient (BNVA) | payer MEDICARE, MEDICAID, SELFPAY | PROVIDERS: PCP Internal Medicine; Visit Provider Podiatrist Foot & Ankle Surgery | DX: E11.9 Type 2 diabetes mellitus without complications; L84 Corns and callosities; M79.672 Pain in left foot | CPT/HCPCS: 99213 ==

== ENCOUNTER → 2024-12-08 10:45 | Outpatient (BNVA) | payer MEDICAID, MEDICARE, SELFPAY | PROVIDERS: PCP Internal Medicine; Visit Provider Nurse Practitioner Family | DX: L40.0 Psoriasis vulgaris (principal); D22.4 Melanocytic nevi of scalp and neck | CPT/HCPCS: 99213 ==

== ENCOUNTER → 2025-01-31 10:15 | Outpatient (BNVA) | payer MEDICARE, MEDICAID, OTHER, SELFPAY | PROVIDERS: PCP Internal Medicine; Visit Provider Nurse Practitioner Psychiatric/Mental Health | DX: Z79.899 Other long term (current) drug therapy (principal) | CPT/HCPCS: 80061; 83036 ==